=== PATIENT | male | born 1970 | race Caucasian/White ===

== ENCOUNTER 2018-04-16 22:17 | Emergency (ER) | payer MEDICAID, SELFPAY ==
[2018-04-16 22:18] VITALS: BP 149/74; PULSE 61; RESP 15; TEMP 36.4; BMI 46.7
--- NOTE | 2018-04-16 22:38 | CT_ITS ---
STUDY: CT CERVICAL SPINE WITHOUT CONTRAST REASON FOR EXAM: Male, 47 years old. Recent head injury RADIATION DOSAGE (If Supplied By Facility): CTDIvol = ( 28.86 ) mGy, DLP = ( 639.68 ) mGycm TECHNIQUE: High resolution transaxial imaging was performed without contrast material. Sagittal and coronal images were reconstructed. Individualized dose optimization techniques were used for this CT. COMPARISON: March 14, 2017 FINDINGS: No significant abnormalities are seen at the atlantoaxial articulation. The odontoid process is unremarkable. There is straightening of the normal cervical lordosis. C2-3: There is no disc space narrowing, canal narrowing, or significant foraminal narrowing. C3-4: There is no disc space narrowing, canal narrowing, or significant foraminal narrowing. C4-5: There is no disc space narrowing, canal narrowing, or significant foraminal narrowing. C5-6: There is no disc space narrowing, canal narrowing, or significant foraminal narrowing. C6-7: There is no disc space narrowing, canal narrowing, or significant foraminal narrowing. C7-T1: There is no disc space narrowing, canal narrowing, or significant foraminal narrowing. The lung apices are unremarkable. The thyroid is within normal limits. CT/Spine Cervical without Contras IMPRESSION: No acute abnormalities are seen in the cervical spine. Electronically Signed: Mitzi Escalante MD at 0:16 EDT Tel Direct: [phone], Service support ,
--- NOTE | 2018-04-16 22:38 | CT_ITS ---
STUDY: CT BRAIN WITHOUT CONTRAST REASON FOR EXAM: Male, 47 years old. Recent head injury RADIATION DOSAGE (If Supplied By Facility): CTDIvol = ( 44.99 ) mGy, DLP = ( 846.73 ) mGycm TECHNIQUE: Transaxial CT imaging of the brain was performed without administration of intravenous contrast material. Individualized dose optimization techniques were used for this CT. COMPARISON: March 14, 2017 FINDINGS: The soft tissues are unremarkable. The osseous structures are unremarkable. Normal size ventricles and extra-axial spaces for the patient's age. The white matter tracts are unremarkable. The basal ganglia and thalami are unremarkable. No abnormalities are seen in the brainstem. The cerebellum is unremarkable. There is no intracranial hemorrhage. There are no findings of acute ischemia. The visualized sinuses are unremarkable. CT/Brain/Head without Contrast IMPRESSION: No acute intracranial abnormalities. Electronically Signed: Mitzi Escalante MD at 0:17 EDT Tel Direct: [phone], Service support ,
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
[2018-04-17 00:33] VITALS: BP 128/72; PULSE 56; RESP 16; O2SAT 97
== END 2018-04-17 00:35 | disposition home or self-care (01) ==
LOC: ED 23:02
PROVIDERS: Emergency Provider Emergency Medicine; Family Provider Family Medicine; PCP Family Medicine
DX: S09.90XA Unspecified injury of head, initial encounter (principal); S16.1XXA Strain of muscle, fascia and tendon at neck level, initial encounter; W16.022A Fall into swimming pool striking bottom causing other injury, initial encounter; Y93.15 Activity, underwater diving and snorkeling; Y92.007 Garden or yard of unspecified non-institutional (private) residence as the place of occurrence of the external cause; Y99.8 Other external cause status; E11.9 Type 2 diabetes mellitus without complications; I10 Essential (primary) hypertension; E78.00 Pure hypercholesterolemia, unspecified; Z79.84 Long term (current) use of oral hypoglycemic drugs; Z79.899 Other long term (current) drug therapy; Z87.891 Personal history of nicotine dependence
CPT/HCPCS: 70450; 72125; 99282

== ENCOUNTER 2020-04-14 21:35 | Emergency (ER) | payer MEDICAID, SELFPAY ==
[2020-04-14 21:36] VITALS: BP 144/76; PULSE 67; RESP 15; TEMP 37.2; O2SAT 93; BMI 44.2
--- NOTE | 2020-04-14 22:21 | EKG12_ITS ---
Test Reason : CP Blood Pressure : / mmHG Vent. Rate : 067 BPM Atrial Rate : 067 BPM P-R Int : 160 ms QRS Dur : 084 ms QT Int : 372 ms P-R-T Axes : 048 003 017 degrees QTc Int : 393 ms Normal sinus rhythm Normal ECG Confirmed by MALDONADO BUTT, KATYA ([id number]), technical editor JORGE NEWMAN ([id number]) on 04/15/2020 1:19:17 PM Referred By: Confirmed By:KATYA OKEEFE MD
--- NOTE | 2020-04-14 22:37 | RAD_ITS ---
STUDY: X-RAY CHEST REASON FOR EXAM: Male, 49 years old. NAUSEA, HEADACHE, CHILLS, CHEST PAIN x2 DAYS, SOB, LOSS OF TASTE/ SMELL -- AWAITING COVID TEST RESULTS TECHNIQUE: PA and lateral COMPARISON: None. FINDINGS: There is interstitial thickening in left lower lobe, right upper and lower lobes with mild groundglass opacities suggesting Covid 19 pneumonia. There is no demonstrated pleural abnormality. Normal size heart. Normal mediastinum and hira. Normal visualized pulmonary arteries. Normal visualized aortic arch and descending thoracic aorta. Normal visualized thoracic spine. Normal visualized ribs, clavicles, and shoulders. There is no demonstrated abnormality of the visualized soft tissue structures of the upper abdomen. RAD/Chest PA and Lateral IMPRESSION: Findings suspicious for Covid 19 pneumonia most pronounced in the right lower lobe. Clinical correlation recommended. CT would be useful for further evaluation if indicated Electronically Signed: Chris Plasencia MD at 22:52 EDT , Service support ,
[2020-04-14 22:48] LABS: Absolute Lymphocyte Count 1.08 X10^3/uL (0.83-4.51); Absolute Neutrophil Count 1.7 X10^3/uL (2.0-7.7); Basophil# 0.01 X10^3/uL; Basophil% 0.3 % (0-1); Eosinophil# 0.06 X10^3/uL; Eosinophils% 1.9 % (0-5); Hemoglobin 12.7 g/dL (13.0-16.5); Lymphocyte # 1.08 X10^3/ul (4.0); Lymphocyte % 33.9 % (19-41); Mean Corp Hgb Conc 35.3 g/dL (32-36); Mean Corpuscular Hgb 31.4 pg (27.0-32.0); Mean Corpuscular Volume 88.9 fL (80-94); Mean Platelet Vol. 9.8 fl (6.2-12.0); Monocyte# 0.34 X10^3/uL; Monocyte% 10.7 % (0-10); NRBC Flagged by Analyzer 0 % (0-5); Neutrophil # 1.69 X10^3/uL (2.7-7.7); Neutrophil % 52.9 % (47-70); POSITIVE COUNT YES; Platelet Count 63 K/mm3 (150-450); RBC Distribution Width SD 39.2 fl (35.1-43.9); Red Blood Count 4.05 M/mm3 (4.6-6.2); White Blood Count 3.2 K/mm3 (4.4-11.0)
--- NOTE | 2020-04-14 22:49 | ED.DCSUM_ITS ---
History of Present Illness Chief Complaint: General Illness Informant: Patient Narrative: Patient presenting for evaluation secondary to generalized illness. Patient reports that over the course of the last 6 days he has been feeling generally ill. This associated with malaise and weakness, shortness of breath especially on exertion. Patient has had subjective fevers, objective temperatures of 99.9. Patient reports a nonproductive cough, some chest pain with taking a deep breath, and states that yesterday he had 4 episodes where he coughed up small amounts of blood. Patient denies any history of DVT or PE, any exogenous hormone use, smoking, recent travel or surgery. Patient does report that he is had a history of pneumonia with similar symptoms in the past. Patient reports that he was tested for coronavirus on , his test results are still pending. He denies any diarrhea. He does have some nausea with this. Review of systems otherwise negative. Past Medical History - Allergies and Home Meds Allergies/Adverse Reactions: Allergies propoxyphene [From Darvon] Allergy (Verified 04/14/20 21:40) Unknown Primary Care Physician: Suki Mathis MD [Primary Care Provider] - Prior records reviewed: Yes Past Medical History: - - Aortic stenosis Surgical History: - - Patient states he has had 2 previous heart caths, most recent in 2012. Denies further surgical history. Lives: Spouse/ Significant Other Smoking Status: Former smoker Alcohol: None Drugs: None - Family History Maternal Family History: Reports: Cancer, Diabetes, Heart Disease Paternal Family History: Reports: Diabetes, Stroke Review of Systems All systems negative except as indicated General: Reports: Chills, Fever, Malaise Eyes: Denies: Visual changes - bilaterally, Diplopia ENT: Denies: Rhinorrhea, Sore throat Cardiovascular: Reports: Chest pain Respiratory: Reports: Dyspnea, Cough, - - Hemoptysis Gastrointestinal: Reports: Nausea Genitourinary: Denies: Dysuria, Hematuria, Frequency Musculoskeletal: Denies: Back pain, Extremity Pain Skin: Denies: Rash, Wounds Neurological: Denies: Headache, Weakness, Numbness Physical Exam Vital Signs/Narrative: Vital Signs Temp Pulse Resp BP Pulse Ox 04/14/20 21:36 98.9 F 67 15 144/76 H 93 Inital Vital Signs reviewed: Yes General: Well nourished, Well developed, No Acute Distress Head: Normocephalic, Atraumatic Eyes: Perrl, EOMI ENT: Moist mucous membranes, No rhinorrhea Neck: Supple, Nontender Cardiovascular: Regular rate, Regular rhythm, Murmur - 3/6 systolic Respiratory: No distress, CTA bilaterally, Chest nontender Abdomen: Soft, Nontender, Nondistended, Normal bowel sounds Back: Nontender, Normal Inspection Extremities: Nontender, No edema Skin: Normal color, No rash Neurological: Alert, Oriented x3, Cranial nerves II-XII grossly intact, Normal Strength, Normal Sensation Psychological: Normal affect, Normal Mood Diagnostic/Tx/Re-eval Clinical Impression(s) from Imaging Studies Chest X-Ray 04/14/20 22:37 IMPRESSION: Findings suspicious for Covid 19 pneumonia most pronounced in the right lower lobe. Clinical correlation recommended. CT would be useful for further evaluation if indicated Electronically Signed: Chris Plasencia MD at 22:52 EDT , Service support , Laboratory Data 04/14/20 04/14/20 04/14/20 22:00 22:00 22:00 WBC 3.2 L RBC 4.05 L Hgb 12.7 L Hct 36.0 L MCV 88.9 MCH 31.4 MCHC 35.3 RDW Std Deviation 39.2 RDW Coeff of Ananya 12.0 Plt Count 63 L MPV 9.8 Immature Gran % (Auto) 0.300 Neut % (Auto) 52.9 Lymph % (Auto) 33.9 [place] % (Auto) 10.7 H Eos % (Auto) 1.9 Baso % (Auto) 0.3 Absolute Neuts (auto) 1.7 L Absolute Lymphs (auto) 1.08 Nucleated RBC % 0 D-Dimer Quant (PE/DVT) 0.49 Sodium 134 L Potassium 3.9 Chloride 103 Carbon Dioxide 25.0 Anion Gap 6 BUN 9 Creatinine 0.63 L Estim Creat Clear Calc 135.71 Est GFR (MDRD) Af Amer 173 Est GFR (MDRD) Non-Af 143 BUN/Creatinine Ratio 14.3 Glucose 186 H Calcium 8.0 L Troponin I 0.019 - EKG Initial EKG Interpretation: - - Sinus rhythm at [address] segments normal T waves normal RI and QTc intervals no evidence of acute ischemia or arrhythmia - Medical Decision Making Patient presenting secondary to shortness of breath hemoptysis and generalized illness. IV was established laboratory studies were obtained. EKG demonstrates no signs of ischemic changes. CBC shows leukocyte suppression. Troponin was negative. D-dimer was negative. PA and lateral chest x-ray by my personal review as well as radiology shows bilateral infiltrates concerning for possible coronavirus infection. Went back and reevaluated the patient. He is 97% on room air and resting comfortably. I do not feel that he is toxic to the point where he requires admission for coronavirus infection. Given the fact that he did say that he had some hemoptysis with this, he potentially concomitantly has a bacterial pneumonia so I do wish to start the patient on a course of azithromycin. Patient actually told me that he had a couple of leftover pills and took 500 mg of azithromycin yesterday and 250 mg today. Patient will be provided with the additional 3 days of the azithromycin course. He was educated on signs and symptoms for which to return. ED Disposition - Plan for ED Patient: Disposition: Home or Assisted Living Diagnosis: Suspected COVID-19 virus infection Prescriptions: Azithromycin 250 mg PO DAILY #3 tab Prescription Printed Referrals: Suki Mathis MD [Primary Care Provider] - 1 Week if not improving
[2020-04-14 22:53] LABS: D-Dimer Quantitative (DVT/PE) 0.49 FEU/ug/m (0.27-0.49)
[2020-04-14 22:55] LABS: Anion Gap 6 (5-15); BUN 9 mg/dL (7-18); BUN/Creat Ratio 14.3 RATIO (10-20); Chloride 103 mmol/L (98-107); Creatinine, Serum 0.63 mg/dL (0.70-1.30); EST Glomerular Filtration Rate 143 mL/min (>60); Est Glom Filt Rate - Afr Amer 173 mL/min (>60); Estimated Creatinine Clearance 135.71 ml/min; Glucose 186 mg/dL (74-106); Potassium 3.9 mmol/L (3.5-5.1); Sodium Level 134 mmol/L (136-145)
[2020-04-14 22:58] LABS: Differential Indicated SCAN CRITERIA MET
[2020-04-14 23:13] LABS: Differential Comment SCANNED; Platelet Estimate MOD DEC (ADEQ)
[2020-04-14 23:22] VITALS: BP 116/54; PULSE 80; RESP 16; O2SAT 96
== END 2020-04-14 23:23 | disposition home or self-care (01) ==
PROVIDERS: Emergency Provider Emergency Medicine; PCP Family Medicine
DX: J15.9 Unspecified bacterial pneumonia (principal); Z87.01 Personal history of pneumonia (recurrent); Z87.891 Personal history of nicotine dependence
CPT/HCPCS: 71046; 80048; 84484; 85025; 85379; 93005; 99284; A4216

== ENCOUNTER 2022-01-06 20:34 | Emergency (ER) | payer MEDICAID, SELFPAY ==
[2022-01-06 20:35] VITALS: BP 159/92; PULSE 62; RESP 18; TEMP 36.9; O2SAT 94; BMI 43.7
--- NOTE | 2022-01-06 20:51 | EKG12_ITS ---
Test Reason : DYSRHYTHMIA Blood Pressure : / mmHG Vent. Rate : 063 BPM Atrial Rate : 063 BPM P-R Int : 154 ms QRS Dur : 088 ms QT Int : 396 ms P-R-T Axes : -07 003 016 degrees QTc Int : 405 ms Normal sinus rhythm Normal ECG Confirmed by MALDONADO BUTT, KATYA ([id number]), brands editor LUIS ARELLANO ([id number]) on 01/07/2022 2:12:13 PM Referred By: JESU Confirmed By:KATYA OKEEFE MD
[2022-01-06 21:12] LABS: Absolute Lymphocyte Count 2.02 X10^3/uL (0.83-4.51); Absolute Neutrophil Count 3.2 X10^3/uL (2.0-7.7); Basophil# 0.04 X10^3/uL; Basophil% 0.7 % (0-1); Eosinophil# 0.22 X10^3/uL; Eosinophils% 3.7 % (0-5); Hematocrit 39.5 % (40-54); Hemoglobin 14.3 g/dL (13.0-16.5); Lymphocyte # 2.02 X10^3/ul (0.83-4.51); Lymphocyte % 33.8 % (19-41); Mean Corp Hgb Conc 36.2 g/dL (32-36); Mean Corpuscular Hgb 31.1 pg (27.0-32.0); Mean Corpuscular Volume 85.9 fL (80-94); Mean Platelet Vol. 9.7 fl (6.2-12.0); Monocyte# 0.49 X10^3/uL; Monocyte% 8.2 % (0-10); NRBC Flagged by Analyzer 0 % (0-5); Neutrophil # 3.19 X10^3/uL (2.7-7.7); Neutrophil % 53.4 % (47-70); POSITIVE COUNT YES; Platelet Count 98 K/mm3 (150-450); RBC Distribution Width SD 40.1 fl (35.1-43.9)
[2022-01-06 21:13] LABS: Differential Indicated SCAN CRITERIA MET
--- NOTE | 2022-01-06 21:20 | RAD_ITS ---
INDICATION: chest pain EXAMINATION/TECHNIQUE: X-RAY - XR Chest 1 View 9:14 PM COMPARISON: 04/14/2020. FINDINGS: LUNGS: No consolidation. No pneumothorax. MEDIASTINUM: Unremarkable. CARDIAC SILHOUETTE: Not enlarged. BONES AND SOFT TISSUES: No acute abnormalities. IMPRESSION: No acute findings. Electronically Signed: Gisel Jimenez MD at 22:01 EDT , RAD/Chest 1 View (Portable)
[2022-01-06 21:26] LABS: Anion Gap 5 (5-15); BUN 8 mg/dL (7-18); BUN/Creat Ratio 9.3 RATIO (10-20); Calcium,Total 8.9 mg/dL (8.5-10.1); Chloride 100 mmol/L (98-107); Creatinine, Serum 0.86 mg/dL (0.70-1.30); EST Glomerular Filtration Rate 99 mL/min (>60); Est Glom Filt Rate - Afr Amer 120 mL/min (>60); Estimated Creatinine Clearance 97.21 ml/min; Glucose 277 mg/dL (74-106); Potassium 4.1 mmol/L (3.5-5.1); Sodium Level 133 mmol/L (136-145); Troponin-I HS 35 pg/mL (3.0-78.0)
--- NOTE | 2022-01-06 21:32 | CT_ITS ---
EXAM: CT HEAD WITHOUT IV CONTRAST - CT Head or Brain W/O Contrast Injection HISTORY: headache TECHNIQUE: Routine protocol CT Head. IV Contrast: None. RADIATION DOSAGE (If Supplied By Facility): CTDIvol = ( 44.99 ) mGy, DLP = ( 880.47 ) mGycm Individualized dose optimization techniques were used for this CT. COMPARISON: CT head 04/16/2018. LIMITATIONS: None. FINDINGS: BRAIN: No acute bleed. No edema. Saenz-white matter differentiation is maintained. VENTRICLES AND SULCI: Not dilated. EXTRA-AXIAL: No hemorrhage, fluid collection, or mass. CALVARIUM / SKULL BASE: Unremarkable. FACE/SINUSES: Unremarkable. SOFT TISSUES: Unremarkable. IMPRESSION: No acute abnormality. Electronically Signed: Gisel Jimenez MD at 22:44 EDT , CT/Brain/Head without Contrast
[2022-01-06 21:34] VITALS: BP 157/99; PULSE 61; RESP 14; O2SAT 95
[2022-01-06] MEDS: Ketorolac 30 MG/ML Syringe IV (22:07)
[2022-01-06] MEDS: 0.9% Normal Saline 1,000 ML 999 ML IV (22:07)
[2022-01-06] MEDS: DiphenhydrAMINE 50 MG/ML Syringe 25 MG IV (22:08)
[2022-01-06] MEDS: Metoclopramide 10 MG/2 ML Vial IV (22:08)
--- NOTE | 2022-01-06 23:07 | EX.ED.DYSGE1 ---
HPI History of Present Illness Chief Complaint: Hypertension Informant: patient Onset/Context/Timing Onset: Weeks Timing: Waxes and wanes Narrative Narrative: Patient presents secondary to headache that he believes is secondary to high blood pressure. He has not had his blood pressure medication filled since April of last year. His doctor retired and he has not seen anyone else. He is scheduled to see a nurse practitioner on the of this month. Patient states he is still taking his Metformin. He has noticed a headache frequently over the last month. He denies chest pain or palpitations. No nausea or vomiting. No vision change. He does have mild light sensitivity. [facility] Medical History Afib Aortic stenosis Asthma Bicuspid aortic valve CAD (coronary artery disease) Diabetes mellitus, type 2 Hyperlipemia Hypertension Murmur Home Medications simvastatin 20 mg PO QHS 07/16/16 [History Last Taken 03/24/17] cyclobenzaprine 5 mg PO QHS PRN PRN 03/14/17 [History Last Taken Unknown] metformin 500 mg PO BIDCM 03/14/17 [History Last Taken 03/25/17] pregabalin 100 mg PO TID 03/14/17 [History Last Taken 03/25/17] loratadine [Allergy] 10 mg PO QHS 04/16/18 [History Last Taken Unknown] azithromycin 250 mg PO DAILY #3 tab 04/14/20 [Rx Last Taken Unknown] lisinopril 20 mg PO DAILY 04/14/20 [History Last Taken Unknown] diphenhydramine HCl [Benadryl] 50 mg PO TID PRN #28 cap 01/06/22 [Rx Last Taken Unknown] ketorolac 10 mg PO Q8H PRN #14 tab 01/06/22 [Rx Last Taken Unknown] metoclopramide HCl [Reglan] 10 mg PO Q8H PRN PRN #14 tab 01/06/22 [Rx Last Taken Unknown] Allergy/AdvReac Type Severity Reaction Status Date / Time propoxyphene [From Darvon] Allergy Unknown Verified 01/06/22 20:35 Surgical History H/O cardiac catheterization Social History Smoking Status: Former smoker ROS ROS ED Constitutional Constitutional ED: Denies chills or fever(s) Eyes Eyes: Denies blurry vision or change in vision ENT ENT ED: Denies rhinorrhea or sore throat Cardiovascular Cardiovascular: Denies chest pain or palpitations Respiratory/Chest Respiratory/Chest: Denies cough or dyspnea Gastrointestinal Gastrointestinal: Denies abdominal pain, nausea or vomiting Genitourinary Genitourinary ED: Denies dysuria or hematuria Musculoskeletal Musculoskeletal: Denies back pain or neck pain Integumentary Denies rash Neurologic Neurologic: Reports headache(s); Denies paresthesias or weakness Allergic/Immunologic Allergic/Immunologic ED: Denies urticaria EXAM Physical Exam Const Vital Signs: 01/06/22 20:35 01/06/22 21:34 Temperature 98.5 F Temperature Source Temporal Pulse Rate 62 61 Respiratory Rate 18 14 Blood Pressure 159/92 H 157/99 H Blood Pressure Mean 114 118 Pulse Ox 94 95 Oxygen Delivery Method Room Air Room Air Positive well nourished and well developed General Appearance ED: well developed HEENT Reports moist mucous membranes Eyes PERRL and EOMs intact bilaterally Neck supple Chest Wall inspection of chest normal and palpation of chest normal Resp normal respiratory effort and clear to auscultation bilaterally Cardio regular rate and regular rhythm GI normal to inspection, nondistended, normoactive bowel sounds and non-tender Palpation: soft Extremity normal to inspection Neuro oriented x3 and no sensory deficits noted Sensorium / Orientation: alert Motor Exam: strength 5/5 throughout Psych mental status grossly normal Skin no rashes or lesions noted MDM MDM MDM Narrative Medical decision making narrative: Patient's blood pressure at the time of my examination is 126/73. Head CT obtained. Patient given Toradol, Reglan, Benadryl, IV fluids. Lab Data Attestation: I reviewed the patient's lab results. Labs: Laboratory Results - last 24 hr 01/06/22 01/06/22 20:52 20:52 WBC 6.0 RBC 4.60 Hgb 14.3 Hct 39.5 L MCV 85.9 MCH 31.1 MCHC 36.2 H RDW Std Deviation 40.1 RDW Coeff of Ananya 13.0 Plt Count 98 L MPV 9.7 Immature Gran % (Auto) 0.200 Neut % (Auto) 53.4 Lymph % (Auto) 33.8 [place] % (Auto) 8.2 Eos % (Auto) 3.7 Baso % (Auto) 0.7 Absolute Neuts (auto) 3.2 Absolute Lymphs (auto) 2.02 Nucleated RBC % 0 Differential Comment Sodium 133 L Potassium 4.1 Chloride 100 Carbon Dioxide 28.0 Anion Gap 5 BUN 8 Creatinine 0.86 Estim Creat Clear Calc 97.21 Est GFR (MDRD) Af Amer 120 Est GFR (MDRD) Non-Af 99 BUN/Creatinine Ratio 9.3 L Glucose 277 H Calcium 8.9 Troponin I High Sens 35 Radiography Diagnostic Testing: Clinical Impression(s) from Imaging Studies Chest X-Ray 01/06/22 21:[address] 01/06/22 21:[address]: IMPRESSION: No acute abnormality. Chest x-ray: IMPRESSION: No acute findings. EKG Initial EKG: Attestation: I personally reviewed and interpreted this EKG as follows: Interpretation: Sinus Rhythm (Sinus at 63 with no acute ischemia.) Treatment and Re-Evaluation Narrative: Lab work reviewed and largely unremarkable. Glucose is 277. Renal function is normal. Head CT shows no acute abnormalities. Chest x-ray per my interpretation reveals chronic changes only. Patient's headache is improving. Systolic blood pressure this time is 116. Patient does have an appointment to see a new nurse practitioner in approximately 2 weeks. I did ask him to keep a journal of his blood pressures until then to help determine best course of treatment. He will be given prescriptions for Toradol, Reglan, Benadryl. Return instructions provided. Discharge Plan Triage Chief Complaint: Hypertension Other Complaint: Headache ED Provider: Mitzi Vickers Dx/Rx/DC Orders Clinical Impression: Cephalgia Instructions: ED Headache Unspecified Prescriptions: New ketorolac 10 mg tablet 10 mg PO Q8H PRN (Reason: pain) Qty: 14 RF: 0 metoclopramide HCl [Reglan] 10 mg tablet 10 mg PO Q8H PRN PRN (Reason: migraine headache) Qty: 14 RF: 0 diphenhydramine HCl [Benadryl] 25 mg capsule 50 mg PO TID PRN (Reason: migraine headache) Qty: 28 RF: 0 No Action simvastatin 20 MG tablet 20 mg PO QHS RF: 0 pregabalin 50 MG capsule 100 mg PO TID RF: 0 metformin 500 MG tablet 500 mg PO BIDCM RF: 0 cyclobenzaprine 10 MG tablet 5 mg PO QHS PRN PRN (Reason: MUSCLE SPASMS) RF: 0 loratadine [Allergy Relief (loratadine)] 10 tablet 10 mg PO QHS RF: 0 lisinopril 20 MG tablet 20 mg PO DAILY RF: 0 azithromycin 250 MG tablet 250 mg PO DAILY Qty: 3 RF: 0 Primary Care Provider: Care Physician,No Primary Referrals: Care Physician,No Primary [Primary Care Provider] - Radha Arroyo MOLDER MACHINE, MOLDER MACHINE-C [NON-STAFF] - Keep [facility] appointment Disposition Disposition: Home, Self Care
[2022-01-06 23:10] VITALS: BP 116/72; PULSE 82; RESP 16; O2SAT 97
== END 2022-01-06 23:23 | disposition home or self-care (01) ==
PROVIDERS: Emergency Provider Emergency Medicine; Visit Provider Emergency Medicine
DX: R51.9 Headache, unspecified (principal); E11.9 Type 2 diabetes mellitus without complications; I25.10 Atherosclerotic heart disease of native coronary artery without angina pectoris; I10 Essential (primary) hypertension; E78.5 Hyperlipidemia, unspecified; Z79.84 Long term (current) use of oral hypoglycemic drugs; Z79.899 Other long term (current) drug therapy; Z87.891 Personal history of nicotine dependence
CPT/HCPCS: 70450; 71045; 80048; 84484; 85025; 93005; 96361; 96374; 96375; 99283; J7030; A4216

== ENCOUNTER 2023-04-11 00:21 | Emergency (ER) | payer MEDICAID, SELFPAY ==
[2023-04-11 00:22] VITALS: BP 155/90; PULSE 73; RESP 16; TEMP 36.5; O2SAT 97; BMI 39.5
[2023-04-11] MEDS: 0.9% Normal Saline 1,000 ML 1000 ML IV (00:45)
--- NOTE | 2023-04-11 01:37 | CT_ITS ---
EXAM: CT ABDOMEN AND PELVIS WITH INTRAVENOUS CONTRAST CLINICAL INDICATION: Abdominal pain TECHNIQUE: Helically acquired images were obtained of the abdomen and pelvis with intravenous contrast. This CT exam was performed using one or more of the following dose reduction techniques: automated exposure control, adjustment of the mA and/or kV according to patient size, and/or use of iterative reconstruction technique. CONTRAST: IV 100mL Isovue-[id number] RADIATION DOSE: Total DLP: 1252.97 mGy-cm. COMPARISON: Previous CT of 03/25/2017. FINDINGS: LOWER THORAX: Visualized lung bases are clear. No coronary artery calcification is identified. No significant pericardial effusion. ABDOMEN: LIVER: Liver demonstrates mild fatty infiltration. Right hepatic lobe is mildly elongated measuring 17.8 cm in cephalocaudal dimension. The liver demonstrates a nodular contour of cirrhosis. Portal veins enhance normally. There is faint recanalization of the umbilical vein. GALLBLADDER AND BILE DUCTS: Gallbladder is borderline in size measuring 9 x 4.5 cm in diameter. A single large gallstone is again noted and has increased in size. No findings of acute cholecystitis or biliary ductal dilatation. PANCREAS: Unremarkable. No focal cystic or solid mass. SPLEEN: Spleen remains enlarged measuring 17 cm in AP diameter. Multiple splenic varices are present, larger than on the prior study. One of the varices transition to the left renal vein. The hypodense area within the anterior aspect of the spleen has been placed by scarring. ADRENALS: Unremarkable. No nodules. KIDNEYS AND URETERS: Unremarkable. Normal renal size and position. No hydronephrosis. No renal or obstructing ureteral stones. The renal nephrograms are symmetric. STOMACH AND BOWEL: Unremarkable. No stomach or bowel distention. No focal inflammatory change. PELVIS: APPENDIX: Normal. No evidence of acute appendicitis. BLADDER: Unremarkable. REPRODUCTIVE: Unremarkable as visualized. No mass. ABDOMEN and PELVIS: INTRAPERITONEAL SPACE: Unremarkable. No ascites or other fluid collection. No free air. BONES/JOINTS: Lumbar facet arthritis is present. Chronic pars defects noted at L3. Rudimentary disc space present at L5/S1. No acute osseous abnormality. No suspicious lytic or blastic abnormality. SOFT TISSUES: A small fat filled umbilical hernia is again noted. VASCULATURE: The abdominal aorta is normal in caliber. LYMPH NODES: Small/normal size lymph nodes are seen adjacent the gastric cardia. Normal to upper normal size mesenteric lymph nodes are seen within the jejunal mesentery, with surrounding haziness. There is a stable mildly enlarged lymph node medial to the right caudate lobe, measuring 16 mm in short axis diameter. No para-aortic adenopathy. 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 No ascites. Cholelithiasis again noted. No findings of acute cholecystitis or biliary ductal dilatation. Numerous small nonspecific mesenteric lymph nodes, which may be due to an adenitis. Normal appendix. No findings of small bowel obstruction or obstructive uropathy. Electronically Signed: Rob Sue MD at 3:28 EDT ,
--- NOTE | 2023-04-11 01:39 | EDS_ITS ---
HPI History of Present Illness Chief Complaint: Abd Pain Narrative Narrative: Patient presents with 3 days of epigastric pain. It does not radiate to the back. He has no lower abdominal pain. He has noted some subjective fevers. He thinks he is slightly constipated. He has no back pain or tearing sensation. He has no chest pain or shortness of breath or cough. He has no urinary symptoms PFSH PFSH Medical History Afib Aortic stenosis Asthma Bicuspid aortic valve CAD (coronary artery disease) Diabetes mellitus, type 2 Hyperlipemia Hypertension Murmur Home Medications simvastatin 20 mg tablet 20 mg PO QHS 07/16/16 [History Last Taken 03/24/17] cyclobenzaprine 10 mg tablet 5 mg PO QHS PRN PRN MUSCLE SPASMS 03/14/17 [History Last Taken Unknown] metformin 500 mg tablet 500 mg PO BIDCM 03/14/17 [History Last Taken 03/25/17] pregabalin 50 mg capsule 100 mg PO TID 03/14/17 [History Last Taken 03/25/17] loratadine 10 mg tablet (Allergy Relief (loratadine)) 10 mg PO QHS 04/16/18 [History Last Taken Unknown] azithromycin 250 mg tablet 250 mg PO DAILY #3 tabs 04/14/20 [Rx Last Taken Unknown] lisinopril 20 mg tablet 20 mg PO DAILY 04/14/20 [History Last Taken Unknown] diphenhydramine HCl 25 mg capsule (Benadryl) 50 mg (2 x 25 mg) PO TID PRN migraine headache #28 caps 01/06/22 [Rx Last Taken Unknown] ketorolac 10 mg tablet 10 mg PO Q8H PRN pain #14 tabs 01/06/22 [Rx Last Taken Unknown] metoclopramide HCl 10 mg tablet (Reglan) 10 mg PO Q8H PRN PRN migraine headache #14 tabs 01/06/22 [Rx Last Taken Unknown] Allergy/AdvReac Type Severity Reaction Status Date / Time propoxyphene [From Darvon] Allergy Unknown Verified 04/11/23 00:28 Surgical History H/O cardiac catheterization Social History Smoking Status: Former smoker ROS ROS ED ROS Narrative Past medical history: Reviewed Medications: Reviewed Social history: Noncontributory Review of systems: All systems negative except as indicated General: No fever Eyes: No visual changes ENT: No upper airway congestion, normal voice Neck: No neck pain Cardiovascular: No chest pain Respiratory: No shortness of breath or cough Gastrointestinal: Abdominal pain as in HPI Genitourinary: No dysuria Musculoskeletal: Denies myalgias no difficulty with ambulation Skin: No rash Neurological: No memory loss, confusion or any focal weakness EXAM Physical Exam Narrative Exam Narrative: Physical exam General: He appears comfortable as I walk into the room. Head: Normocephalic, Atraumatic Eyes: Conjunctiva not pale ENT: Moist mucous membranes Neck: Supple, Nontender, No lymphadenopathy Cardiovascular: Regular rate, Regular rhythm Respiratory: No distress, CTA bilaterally Abdomen: Soft, epigastric tenderness to palpation. There is no guarding or rebound. No significant right upper quadrant pain. Negative Rolle's. No lower abdominal pain or pain at McBurney's. Back: Nontender, Normal Inspection. Negative for: CVA tenderness Extremities: Nontender, No edema Skin: Normal color, No rash Neurological: Alert, Normal Strength, Normal Sensation Psychological: Normal affect Const Vital Signs: 04/11/23 00:22 04/11/23 01:50 04/11/23 01:54 Temperature 97.7 F L Temperature Source Oral Pulse Rate 73 68 69 Respiratory Rate 16 18 16 Blood Pressure 155/90 H 125/72 H 113/82 H Blood Pressure Mean 111 89 92 Pulse Ox 97 100 99 Oxygen Delivery Method Room Air Room Air Room Air MDM MDM MDM Narrative Medical decision making narrative: Patient presents with epigastric pain. He has known fatty liver disease, CT is now consistent with cirrhosis with some engorgement. No other pathologies, his total bilirubin is slightly elevated 1.0 and the transaminases are unremarkable. I do not believe he meets admission criteria. He appears well and improved in the ED. I will refer him to GI. He tells me he has not drank since he was 17 years old, he has a family history of cirrhosis that is nonalcoholic. I advised him on diet and otherwise I believe he can follow-up with close GI appointment. If anything changes he is to return he understands that. Lab Data Labs: Laboratory Results - last 24 hr 04/11/23 04/11/23 01:46 01:53 WBC 4.0 L RBC 4.19 L Hgb 13.1 Hct 36.1 L MCV 86.2 MCH 31.3 MCHC 36.3 H RDW Std Deviation 39.9 RDW Coeff of Ananya 12.8 Plt Count 87 L MPV 9.7 Immature Gran % (Auto) 0.300 Neut % (Auto) 56.0 Lymph % (Auto) 26.8 Guadalupe % (Auto) 11.6 H Eos % (Auto) 4.8 Baso % (Auto) 0.5 Absolute Neuts (auto) 2.2 Absolute Lymphs (auto) 1.06 Nucleated RBC % 0 Sodium 133 L Potassium 3.5 Chloride 104 Carbon Dioxide 23.0 Anion Gap 6 BUN 8 Creatinine 0.84 Estim Creat Clear Calc 101.70 Est GFR (MDRD) Af Amer 122 Est GFR (MDRD) Non-Af 101 BUN/Creatinine Ratio 9.5 L Glucose 210 H Calcium 7.8 L Total Bilirubin 1.40 H Direct Bilirubin 0.49 H AST 28 ALT 16 Alkaline Phosphatase 107 Total Protein 6.3 L Albumin 3.0 L Globulin 3.3 Lipase 52 Urine Color Yellow Urine Clarity Clear Urine pH 6.5 Ur Specific Molt 1.015 Urine Protein 30 H Urine Glucose (UA) 250 H Urine Ketones 5 H Urine Occult Blood 10 H Urine Nitrite Negative Urine Bilirubin 3 H Urine Urobilinogen 12 H Ur Leukocyte Esterase 100 H Urine RBC 0-5 SEEN Urine WBC 5-10 SEEN Ur Squamous Epith Cells 0-5 SEEN Urine Bacteria 1+ Urine Mucus 0 SEEN Radiography Diagnostic Testing: Clinical Impression(s) from Imaging Studies Abdomen/Pelvis CT 04/11/23 01:37 IMPRESSION: 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 No ascites. Cholelithiasis again noted. No findings of acute cholecystitis or biliary ductal dilatation. Numerous small nonspecific mesenteric lymph nodes, which may be due to an adenitis. Normal appendix. No findings of small bowel obstruction or obstructive uropathy. Electronically Signed: Rob Sue MD at 3:28 EDT , Discharge Plan Triage Chief Complaint: Abd Pain ED Provider: Idris Burgos Dx/Rx/DC Orders Clinical Impression: Cirrhosis, Abdominal pain Instructions: Abdominal Pain, ED Cirrhosis Prescriptions: No Action simvastatin 20 MG tablet 20 mg PO QHS Patient Comments: CHOLESTEROL pregabalin 50 MG capsule 100 mg PO TID Patient Comments: NERVE PAIN metformin 500 MG tablet 500 mg PO BIDCM Patient Comments: DIABETES cyclobenzaprine 10 MG tablet 5 mg PO QHS PRN PRN (Reason: MUSCLE SPASMS) Patient Comments: MUSCLE SPASMS loratadine [Allergy Relief (loratadine)] 10 tablet 10 mg PO QHS Patient Comments: lisinopril 20 MG tablet 20 mg PO DAILY azithromycin 250 MG tablet 250 mg PO DAILY Qty: 3 0RF ketorolac 10 mg tablet 10 mg PO Q8H PRN (Reason: pain) Qty: 14 0RF metoclopramide HCl [Reglan] 10 mg tablet 10 mg PO Q8H PRN PRN (Reason: migraine headache) Qty: 14 0RF diphenhydramine HCl [Benadryl] 25 mg capsule 50 mg PO TID PRN (Reason: migraine headache) Qty: 28 0RF Primary Care Provider: Care Physician,No Primary Referrals: Friend,Venkata, [Med Staff - Active Staff] - 3-5 Days Care Physician,No Primary [Primary Care Provider] -
[2023-04-11] MEDS: Ondansetron 4 MG/2 ML Vial IV (01:44)
[2023-04-11] MEDS: Morphine 4 MG/ML Syringe IV (01:44)
[2023-04-11 01:50] VITALS: BP 125/72; PULSE 68; RESP 18; O2SAT 100
[2023-04-11 01:54] VITALS: BP 113/82; PULSE 69; RESP 16; O2SAT 99
[2023-04-11 02:00] LABS: Mucous, Urine 0 SEEN /hpf (<or=2+)
[2023-04-11 02:03] LABS: Color, Urine Yellow (Yellow); Glucose, Dipstick 250 mg/dl (Normal); Ketone-Dipstick 5 mg/dl (Negative); Leukocyte Esterase-Dipstick 100 /ul (Negative); Nitrite-Dipstick Negative (Negative); Occult Blood-Urine 10 /ul (Negative); Protein-Dipstick 30 mg/dl (Negative); Specific Gravity, Urine 1.015 (1.002-1.030); Urine Clarity Clear (Clear); Urine Urobilinogen 12 mg/dl (Normal); Urine pH 6.5 (5.0 - 8.0)
[2023-04-11 02:05] LABS: Absolute Lymphocyte Count 1.06 X10^3/uL (0.83-4.51); Absolute Neutrophil Count 2.2 X10^3/uL (2.0-7.7); Basophil# 0.02 X10^3/uL; Basophil% 0.5 % (0-1); Eosinophil# 0.19 X10^3/uL; Eosinophils% 4.8 % (0-5); Hematocrit 36.1 % (40-54); Hemoglobin 13.1 g/dL (13.0-16.5); Lymphocyte # 1.06 X10^3/ul (0.83-4.51); Lymphocyte % 26.8 % (19-41); Mean Corp Hgb Conc 36.3 g/dL (32-36); Mean Corpuscular Hgb 31.3 pg (27.0-32.0); Mean Corpuscular Volume 86.2 fL (80-94); Mean Platelet Vol. 9.7 fl (6.2-12.0); Monocyte# 0.46 X10^3/uL; Monocyte% 11.6 % (0-10); NRBC Flagged by Analyzer 0 % (0-5); Neutrophil # 2.21 X10^3/uL (2.7-7.7); POSITIVE COUNT YES; Platelet Count 87 K/mm3 (150-450); RBC Distribution Width CV 12.8 % (11.6-14.6); RBC Distribution Width SD 39.9 fl (35.1-43.9); Red Blood Count 4.19 M/mm3 (4.6-6.2)
[2023-04-11 02:10] LABS: Urine Bilirubin Dipstick 3 mg/dL (Negative)
[2023-04-11 02:11] LABS: Bacteria 1+ /hpf (None Seen); Red Blood Cells-Urine 0-5 SEEN /hpf (0-5); Squamous Epithelial Cells - UA 0-5 SEEN /hpf (0-5); White Blood Cells 5-10 SEEN /hpf (0-5)
[2023-04-11 02:44] LABS: AST(SGOT) 28 U/L (15-37); Alanine Aminotransfer ALT/SGPT 16 U/L (16-61); Alkaline Phosphatase 107 U/L (45-117); Anion Gap 6 (5-15); BUN 8 mg/dL (7-18); BUN/Creat Ratio 9.5 RATIO (10-20); Bilirubin, Direct 0.49 mg/dL (0.00-0.30); Calcium,Total 7.8 mg/dL (8.5-10.1); Chloride 104 mmol/L (98-107); Creatinine, Serum 0.84 mg/dL (0.70-1.30); EST Glomerular Filtration Rate 101 mL/min (>60); Est Glom Filt Rate - Afr Amer 122 mL/min (>60); Globulin 3.3 g/dL (2.2-4.2); Glucose 210 mg/dL (74-106); Lipase 52 U/L (13-75); Potassium 3.5 mmol/L (3.5-5.1); Protein, Total 6.3 g/dL (6.4-8.2); Sodium Level 133 mmol/L (136-145)
[2023-04-11 04:33] VITALS: BP 131/85; PULSE 64; RESP 18; O2SAT 99
== END 2023-04-11 04:37 | disposition home or self-care (01) ==
PROVIDERS: Emergency Provider Emergency Medicine; Visit Provider Emergency Medicine
DX: K74.60 Unspecified cirrhosis of liver (principal); E11.9 Type 2 diabetes mellitus without complications; I25.10 Atherosclerotic heart disease of native coronary artery without angina pectoris; I10 Essential (primary) hypertension; E78.5 Hyperlipidemia, unspecified; Z79.84 Long term (current) use of oral hypoglycemic drugs; Z79.899 Other long term (current) drug therapy; Z87.891 Personal history of nicotine dependence
CPT/HCPCS: 74177; 80048; 80076; 81001; 83690; 85025; 96361; 96374; 96375; 99283; J7030; Q9967; A4216; J2405; J3490